=== PATIENT | female | born 2005 | race Hispanic/Latino ===

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

== ENCOUNTER 2024-02-17 16:16 | Emergency (ER) | payer BC, SELFPAY ==
[2024-02-17 16:24] VITALS: BMI 24.2
--- NOTE | 2024-02-17 16:27 | PC.NURSE ---
pt belongings put in bags and locked up; pt changed into paper scrubs; pt asked to give urine sample when able to this sitter remains at bedside.
--- NOTE | 2024-02-17 16:31 | ED_ITS ---
HPI - General Adult <Elizabeth Russell MD - Last Filed: 03/03/24 23:42> General Chief complaint: Psychiatric Symptoms Stated complaint: SI Time Seen by Provider: 02/17/24 16:31 History of Present Illness HPI narrative: Brought in by police after being found at [place] wanting to just off. Broke up with boyfriend today. Police bring her in for safety. She states that she still feels like she wants to hurt herself. Boyfriend is reportedly in the waiting room patient would like to see him. We would like to complete evaluation and have her talk with our clinical social work therapist before we reunite the broken up pair. She has had prior suicide attempts currently is on fluoxetine and took that for approximately 6 months with complaints that it did not help with her mood and did cause increasing lability. On January 25 this was discontinued and she was started on sertraline. Related Data Home Medications Medication Instructions Recorded Confirmed sertraline 100 mg tablet mg PO DAILY Depression 02/27/24 02/27/24 Previous Rx's Medication Instructions Recorded buspirone 5 mg tablet 5 mg PO BID #60 tabs 02/27/24 Allergies Allergy/AdvReac Type Severity Reaction Status Date / Time No Known Drug Allergies Allergy Verified 02/27/24 10:13 <Momo Hutchins DO - Last Filed: 02/17/24 22:46> History of Present Illness HPI narrative: Brought in by police after being found at [place] wanting to jump off. Broke up with boyfriend today. Police bring her in for safety. She states that she still feels like she wants to hurt herself. Boyfriend is reportedly in the waiting room patient would like to see him. We would like to complete evaluation and have her talk with our clinical social work therapist before we reunite the broken up pair. She has had prior suicide attempts currently is on fluoxetine and took that for approximately 6 months with complaints that it did not help with her mood and did cause increasing lability. On January 25 this was discontinued and she was started on sertraline. Patient History <Elizabeth Russell MD - Last Filed: 03/03/24 23:42> Medical History (Updated 03/03/24 @ 00:00 by ) Vision disorder Depression with anxiety Fatigue Surgical History (Updated 01/14/24 @ 20:05 by Avril Ray) Anesthesia History of eye surgery Social History Smoking Status: Never smoker Smoking Status: Never smoker Exam <Elizabeth Russell MD - Last Filed: 03/03/24 23:42> Initial Vital Signs Initial Vital Signs: Vital Signs Temperature 98.2 F 02/17/24 16:33 Pulse Rate 112 H 02/17/24 16:33 Respiratory Rate 16 02/17/24 16:33 Blood Pressure 128/79 02/17/24 16:33 Pulse Oximetry 99 02/17/24 16:33 Oxygen Delivery Method Room Air 02/17/24 16:33 <Momo Hutchins DO - Last Filed: 02/17/24 22:46> Initial Vital Signs Initial Vital Signs: Vital Signs Temperature 98.2 F 02/17/24 16:33 Pulse Rate 112 H 02/17/24 16:33 Respiratory Rate 16 02/17/24 16:33 Blood Pressure 128/79 02/17/24 16:33 Pulse Oximetry 99 02/17/24 16:33 Oxygen Delivery Method Room Air 02/17/24 16:33 Const General: cooperative, comfortable and No ill appearing HENIN Head: normal to inspection and normocephalic Resp Effort & Inspection: normal respiratory effort Cardio Rate: regular rate Neuro General: patient alert, patient awake, patient oriented x3 and moves all extremities Extrem General: normal to inspection Psych Appearance: grossly normal and well kempt Speech and Movement: speech and movement normal Affect: sad Attitude: cooperative Course <Elizabeth Russell MD - Last Filed: 03/03/24 23:42> Orders Ordered: ED Orders 02/17/24 16:35 Complete Blood Count AUTO DIFF Stat Comprehensive Metabolic Panel Stat Ethanol (ETOH) Stat TSH w/ Reflex to FT4 Stat 02/17/24 17:56 Consult to [facility] - Statistical Engineer Stat 02/17/24 19:15 Covid-19 + FLU A/B + RSV - PCR Stat 02/17/24 19:25 Urine Culture Stat Urine Drug Screen, Rapid Stat Urine Microscopic Stat Vital Signs Vital signs: Vital Signs - 8 hr 02/17/24 16:33 02/17/24 20:33 Temperature 98.2 F 98.5 F Pulse Rate 112 H 115 H Respiratory Rate 16 16 Blood Pressure 128/79 117/70 Pulse Oximetry 99 99 Oxygen Delivery Method Room Air Room Air Oxygen Flow Rate 0 <Momo Hutchins DO - Last Filed: 02/17/24 22:46> Orders Ordered: ED Orders 02/17/24 16:35 Complete Blood Count AUTO DIFF Stat Comprehensive Metabolic Panel Stat Ethanol (ETOH) Stat TSH w/ Reflex to FT4 Stat 02/17/24 17:56 Consult to [facility] - Statistical Engineer Stat 02/17/24 19:15 Covid-19 + FLU A/B + RSV - PCR Stat 02/17/24 19:25 Urine Culture Stat Urine Drug Screen, Rapid Stat Urine Microscopic Stat Vital Signs Vital signs: Vital Signs - 8 hr 02/17/24 16:33 02/17/24 20:33 Temperature 98.2 F 98.5 F Pulse Rate 112 H 115 H Respiratory Rate 16 16 Blood Pressure 128/79 117/70 Pulse Oximetry 99 99 Oxygen Delivery Method Room Air Room Air Oxygen Flow Rate 0 Medical Decision Making <Elizabeth Russell MD - Last Filed: 03/03/24 23:42> Lab Data 02/17/24 16:35 02/17/24 16:35 Labs: Lab Results 02/17/24 02/17/24 02/17/24 Range/Units 16:35 19:15 19:25 WBC 8.8 (4.5-11.0) X10^3/uL RBC 4.21 (4.0-5.2) X10^6/uL Hgb 12.6 (12.0-16.0) g/dL Hct 36.2 (36-46) % MCV 86.0 (80-100) fL MCH 30.0 (26-34) PG MCHC 34.9 (30-36) % RDW 12.8 (11.6-14.8) % Plt Count 338 (150-400) X10^3/uL Neut % (Auto) 70.6 (50-75) % Lymph % (Auto) 21.9 L (25-40) % [place] % (Auto) 5.7 (3-14) % Eos % (Auto) 1.5 L (2-4) % Baso % (Auto) 0.3 (0-2) % Neut # (Auto) 6200 (3174-0148) /uL Lymph # (Auto) 1900 (5034-0572) /uL [place] # (Auto) 500 (0-900) /uL Eos # (Auto) 100 (0-450) /uL Baso # (Auto) 0 (0-100) /uL Sodium 139 (137-145) mmol/L Potassium 4.0 (3.4-5.1) mmol/L Chloride 106 (98-107) mmol/L Carbon Dioxide 24 (22-32) mmol/L BUN 17 (7-17) mg/dL Creatinine 0.69 (0.52-1.04) mg/dL Estimated GFR > 60 (>60) mL/min BUN/Creatinine Ratio 24.6 H (6-22) Glucose 100 (70-100) mg/dL Calcium 9.5 (8.4-10.2) mg/dL Total Bilirubin 0.5 (0.2-1.3) mg/dL AST 25 (14-36) IU/L ALT 21 (<35) IU/L Alkaline Phosphatase 54 (38-126) U/L Total Protein 7.8 (6.3-8.2) g/dL Albumin 4.8 (3.5-5.0) g/dL Globulin 3.0 (1.7-4.1) g/dL Albumin/Globulin Ratio 1.6 (1.0-2.8) TSH 0.87 (0.47-4.68) uIU/mL Urine RBC None seen (0-5/HPF) Urine WBC 1-5/hpf (0-5/HPF) Ur Squamous Epith Cells 1-5 /hpf (0-5/HPF) Urine Bacteria Many (>30) H (None) Ur Culture Indicated? Specimen cultured Vol Urine Centrifuged 10ml (spun) U Opiates 300ng/mL cut Negative (Negative) Ur Oxycodone Screen Negative (Negative) Urine Methadone Screen Negative (Negative) Ur Barbiturates Screen Negative (Negative) U Tricyclic Antidepress Negative (Negative) Ur Phencyclidine Scrn Negative (Negative) Ur Amphetamines Screen Negative (Negative) U Methamphetamines Scrn Negative (Negative) Ur MDMA Scrn (Ecstasy) Negative (Negative) U Benzodiazepines Scrn Negative (Negative) Urine Cocaine Screen Negative (Negative) U Marijuana (THC) Screen Negative (Negative) Urine pH Normal (Normal) Urine Specific [place] Normal (Normal) Ethyl Alcohol < 10 ( - 10) mg/dL Ur Creatinine Normal (Normal) SARS-CoV-2 (PCR) Negative (Negative) Influenza A (RT-PCR) Flu a negative (NEGATIVE) Influenza B (RT-PCR) Flu b negative (NEGATIVE) RSV (PCR) Negative (Negative) Point of Care Testing Test Results Negative Urine Dip Bedside Urine Glucose Negative Bedside Urine Bilirubin - Negative Bedside Urine Ketone +/- 5 Urine Specific [place] 1.030 Bedside Urine Occult Blood +/- Bedside Urine pH 6.0 Bedside Urine Protein - Negative Bedside Urine Urobilinogen - Negative Bedside Urine Nitrite - Negative Point of care testing: Point of Care Testing Test Results Negative Urine Dip Bedside Urine Glucose Negative Bedside Urine Bilirubin - Negative Bedside Urine Ketone +/- 5 Urine Specific [place] 1.030 Bedside Urine Occult Blood +/- Bedside Urine pH 6.0 Bedside Urine Protein - Negative Bedside Urine Urobilinogen - Negative Bedside Urine Nitrite - Negative MDM Narrative Medical decision making narrative: CC: Suicidal ideation Complicating co-morbidities: [place] on [place] about to jump off, intermittent episodes of homelessness, broke up with her boyfriend today, financial stressors Data collected from: patient , police officers -we will be leaving affidavit Medical records reviewed: Primary care notes with the discussion of depression and change of medications reviewed from January 25 Differential considered: Active suicidal ideation, passive suicidal ideation Exam documented above, pertinent findings include: Lab Test results independently reviewed as above. Pertinent findings: Independently reviewed EKG: Imaging studies independently reviewed: Consultations: Treatments: Re-evaluations: Discussion: <Momo Hutchins DO - Last Filed: 02/17/24 22:46> Lab Data Lab results reviewed: Yes I reviewed the patient's lab results. Labs: Lab Results 02/17/24 02/17/24 02/17/24 Range/Units 16:35 19:15 19:25 WBC 8.8 (4.5-11.0) X10^3/uL RBC 4.21 (4.0-5.2) X10^6/uL Hgb 12.6 (12.0-16.0) g/dL Hct 36.2 (36-46) % MCV 86.0 (80-100) fL MCH 30.0 (26-34) PG MCHC 34.9 (30-36) % RDW 12.8 (11.6-14.8) % Plt Count 338 (150-400) X10^3/uL Neut % (Auto) 70.6 (50-75) % Lymph % (Auto) 21.9 L (25-40) % [place] % (Auto) 5.7 (3-14) % Eos % (Auto) 1.5 L (2-4) % Baso % (Auto) 0.3 (0-2) % Neut # (Auto) 6200 (6609-9834) /uL Lymph # (Auto) 1900 (2969-3041) /uL [place] # (Auto) 500 (0-900) /uL Eos # (Auto) 100 (0-450) /uL Baso # (Auto) 0 (0-100) /uL Sodium 139 (137-145) mmol/L Potassium 4.0 (3.4-5.1) mmol/L Chloride 106 (98-107) mmol/L Carbon Dioxide 24 (22-32) mmol/L BUN 17 (7-17) mg/dL Creatinine 0.69 (0.52-1.04) mg/dL Estimated GFR > 60 (>60) mL/min BUN/Creatinine Ratio 24.6 H (6-22) Glucose 100 (70-100) mg/dL Calcium 9.5 (8.4-10.2) mg/dL Total Bilirubin 0.5 (0.2-1.3) mg/dL AST 25 (14-36) IU/L ALT 21 (<35) IU/L Alkaline Phosphatase 54 (38-126) U/L Total Protein 7.8 (6.3-8.2) g/dL Albumin 4.8 (3.5-5.0) g/dL Globulin 3.0 (1.7-4.1) g/dL Albumin/Globulin Ratio 1.6 (1.0-2.8) TSH 0.87 (0.47-4.68) uIU/mL Urine RBC None seen (0-5/HPF) Urine WBC 1-5/hpf (0-5/HPF) Ur Squamous Epith Cells 1-5 /hpf (0-5/HPF) Urine Bacteria Many (>30) H (None) Ur Culture Indicated? Specimen cultured Vol Urine Centrifuged 10ml (spun) U Opiates 300ng/mL cut Negative (Negative) Ur Oxycodone Screen Negative (Negative) Urine Methadone Screen Negative (Negative) Ur Barbiturates Screen Negative (Negative) U Tricyclic Antidepress Negative (Negative) Ur Phencyclidine Scrn Negative (Negative) Ur Amphetamines Screen Negative (Negative) U Methamphetamines Scrn Negative (Negative) Ur MDMA Scrn (Ecstasy) Negative (Negative) U Benzodiazepines Scrn Negative (Negative) Urine Cocaine Screen Negative (Negative) U Marijuana (THC) Screen Negative (Negative) Urine pH Normal (Normal) Urine Specific [place] Normal (Normal) Ethyl Alcohol < 10 ( - 10) mg/dL Ur Creatinine Normal (Normal) SARS-CoV-2 (PCR) Negative (Negative) Influenza A (RT-PCR) Flu a negative (NEGATIVE) Influenza B (RT-PCR) Flu b negative (NEGATIVE) RSV (PCR) Negative (Negative) Point of Care Testing Test Results Negative Urine Dip Bedside Urine Glucose Negative Bedside Urine Bilirubin - Negative Bedside Urine Ketone +/- 5 Urine Specific [place] 1.030 Bedside Urine Occult Blood +/- Bedside Urine pH 6.0 Bedside Urine Protein - Negative Bedside Urine Urobilinogen - Negative Bedside Urine Nitrite - Negative Point of care testing: Point of Care Testing Test Results Negative Urine Dip Bedside Urine Glucose Negative Bedside Urine Bilirubin - Negative Bedside Urine Ketone +/- 5 Urine Specific [place] 1.030 Bedside Urine Occult Blood +/- Bedside Urine pH 6.0 Bedside Urine Protein - Negative Bedside Urine Urobilinogen - Negative Bedside Urine Nitrite - Negative MDM Narrative Medical decision making narrative: CC: Suicidal ideation Complicating co-morbidities: Found standing on [place] about to jump off, intermittent episodes of homelessness, broke up with her boyfriend today, financial stressors Data collected from: patient , police officers -we will be leaving affidavit Medical records reviewed: Primary care notes with the discussion of depression and change of medications reviewed from January 25 Differential considered: Active suicidal ideation, passive suicidal ideation Exam documented above, pertinent findings include: Lab Test results independently reviewed as above. Pertinent findings: Independently reviewed EKG: Imaging studies independently reviewed: Consultations: Treatments: Re-evaluations: Discussion: Dr hutchins: Received turned over. Review patient's history and physical exam and workup up to this point. Patient is expressing suicidal ideation and active suicidal ideation. She was medically cleared social work consult placed. Will attempt to find placement. Dr Hutchins: Patient has been accepted to [facility]. Patient is voluntary. She was stable for transport. Discharge Plan Departure Patient Disposition[facility] Clinical Impression: Suicidal ideation Prescriptions: No Action sertraline 100 mg tablet PO DAILY Patient Comments: Mental hospital doctor prescribed me this buspirone 5 mg tablet 5 mg PO BID Qty: 60 0RF Referrals: Raina Cullen MD [Primary Care Provider] -
[2024-02-17 16:33] VITALS: BP 128/79; PULSE 112; RESP 16; TEMP 36.8; O2SAT 99
[2024-02-17 16:56] LABS: Add Manual Diff / Slide Review NO; Basophils Absolute Auto 0 /uL (0-100); Basophils Percent Auto 0.3 % (0-2); Eosinophils Absolute Auto 100 /uL (0-450); Eosinophils Percent Auto 1.5 % (2-4); Hematocrit 36.2 % (36-46); Hemoglobin 12.6 g/dL (12.0-16.0); Lymphocytes Absolute Auto 1900 /uL (1100-4500); Lymphocytes Percent Auto 21.9 % (25-40); Mean Corpuscular HGB Conc 34.9 % (30-36); Monocytes Absolute Auto 500 /uL (0-900); Monocytes Percent Auto 5.7 % (3-14); Neutrophils Absolute Auto 6200 /uL (1500-7000); Neutrophils Percent Auto 70.6 % (50-75); Platelet Count 338 X10^3/uL (150-400); Red Blood Cell Count 4.21 X10^6/uL (4.0-5.2); Red Cell Distribution Width 12.8 % (11.6-14.8); White Blood Cell Count 8.8 X10^3/uL (4.5-11.0)
[2024-02-17 17:11] LABS: Alanine Aminotransferase 21 IU/L (<35); Albumin 4.8 g/dL (3.5-5.0); Albumin Globulin Ratio 1.6 (1.0-2.8); Alkaline Phosphatase 54 U/L (38-126); Aspartate Aminotransferase 25 IU/L (14-36); BUN Creatinine Ratio 24.6 (6-22); Bilirubin Total 0.5 mg/dL (0.2-1.3); Blood Urea Nitrogen 17 mg/dL (7-17); Calcium 9.5 mg/dL (8.4-10.2); Carbon Dioxide 24 mmol/L (22-32); Chloride 106 mmol/L (98-107); Estimated Glomerular Filt Rate > 60 mL/min (>60); Ethanol (ETOH) < 10 mg/dL; Glucose 100 mg/dL (70-100); HEMOLYSIS < 15 (0-50); Sodium 139 mmol/L (137-145); Total Protein 7.8 g/dL (6.3-8.2)
--- NOTE | 2024-02-17 17:46 | CM.SWNOTE ---
ED PARK RANGER Assessment: PARK RANGER - Forest Pathology Professor Assessment PARK RANGER/Forest Pathology Professor Assessment Time Spent with Patient Start date 02/17/24 Visit Start Time 16:45 End date 02/17/24 Visit End Time 17:05 Total time Care Management spent on 20 minutes patient visit-in minutes Mental Health Screening Include Onset, Duration, Intensity Presenting Problem Patient arrives via [facility] Department for psych evaluation and medical clearance for inpatient treatment. Per [employer] and patient , patient was found at [facility] in [place] with intentions of jumping from the [place] to end her life. Per medical record, pt has history of passive suicidal ideation with no plans or intention. Patient's PHQ-9 scored at 23, SAMANTHA-7 scored at 20. Precipitating Event(s) Patient has a hx of depression with anxiety. Patient has switched her medications recently (01/26/24) from fluoxetine to sertraline. Patient obtains this prescription through her primary care provider. Patient was feeling hopeless and lonely following a disagreement with her boyfriend which resulted in them ending their relationship today. Patient Strengths Patient is in school, aspiring to be a nurse and works at [employer] as a [employer]. Patient also collaborates with her Primary Care Provider. Current Behavioral Health Provider(s) Patient currently does not Include Facility, Provider, Ph. # have a mental health provider. Per EMR, pt was referred to counseling by her PCP but has not been able to establish MH care. Psych. Hx Mental Health and Chemical Patient explains her mother Dependency has undiagnosed depression, denies any other family hx of psychiatric diagnoses. Patient reports she utilizes THC but denies any other substances. Family Hx of Behavioral Abuse None reported. Psychiatric Hospitalizations (date(s)/ None reported. location) Psychosocial information & Support Patient is a 18yo female, Systems resident of [place]. Patient lives with her boyfriend and his family. Patient reports her relationship with her parents is estranged and has very little contact with them. School/Work Patient is in school to be a nurse and works as a health analytics consultant at [employer]. Mental Status Orientation (Person/Place/Time) Alert and oriented x4 Stated Mood lonely Affect (Congruent with Mood?) Dysthymic, tearful Thought Content - Specify/Describe No obsessions, delusions, or Obsessions, Delusions, Hallucinations hallucinations observed or reported. Thought Processes (Ixgithc-Uoorvmhz-Nbjr Coherent, goal directed. Nmogpdaz-Mdjxtvjt-Jdwfsszsst- Kmxiuwteepcrkc-Sjyoktn-Yxqnbnfbprxb- Thought Blocking) Speech (Edbjoo-Iupb-Ofsrgzh-Rapid-Soft- Soft, normal Loud-Pressured) Motor (Dkxkvs-Quauzvkyn-Cnoe-Other) Normal Insight (Vhsg-Vasp-Hthd/Limited) Fair/limited Judgement (Jldm-Zmso-Zudl/Limited) Poor/limited Impulse Control (Adequate-Impaired) Adequate during assessment. Patient does describe today's suicide near attempt to be impulsive and does not describe other scenarios in which she feels she acts impulsively. Memory (Kfwiofvzy-Kzcfns-Jkpmwq, Intact for interview, not Impaired-Intact) formally assessed. Concentration (Intact-Impaired) Intact Attention (Intact-Impaired) Intact Behavior (Appropriate-Inappropriate) Appropriate. Additional Comment Patient is calm, cooperative during assessment. Risk Assessment Suicidal Ideation (Plan) Yes Homicidal Ideation (Plan) No Comment Patient denies HI. Patient endorses SI and drove to [place] with intentions of killing herself by jumping from the look[place]. Patient explains her SI is typically passive and she has never thought of a plan but with the precipitating events of today , she felt so lonely in which she didn't want to feel this way anymore. Intervention Intervention PARK RANGER meets with patient. Patient discusses her SI and the events today in which she drove to [place] lookout and had intentions of jumping to end her life. PARK RANGER and patient discuss next steps. PARK RANGER educated patient on the Involunary Treatment Act, patient endorsed understanding although reported that she wished she could go home (her boyfriend 's house). Patient explains she is open to receiving inpatient behavioral health hospitalization at this time. PARK RANGER calls [facility] [employer] [facility] to consult regarding pt's FABIO status. DCR to call this PARK RANGER for further clarification but VOA Specialist states pt seems to check criteria for voluntary treatment. At this time, it is the opinion of this PARK RANGER that patient would benefit from inpatient psychiatric hospitalization for SI. PARK RANGER informs ED provider, Dr. Russell, who indicates agreement. PARK RANGER informs CARLA Hernandez of plan coordination. Plan RA Plan Once patient is medically clear, ED staff will attempt to find inpatient placement for patient. MAYI Grossman
--- NOTE | 2024-02-17 18:10 | PC.NURSE ---
Mom at bedside.
[2024-02-17 18:30] LABS: TSH w/ Reflex to FT4 0.87 uIU/mL (0.47-4.68)
--- NOTE | 2024-02-17 19:25 | CM.SWNOTE ---
ED SHOE CLERK Note: SHOE CLERK called [facility] for bed census, it was reported by Mo that there are 2 beds available. Clinical packet was sent for review. SHOE CLERK called [facility] for bed census, it was reported by Karoline that there are 2 beds available. Clinical packet was sent for review. SHOE CLERK completed initial screening via phone. SHOE CLERK called [facility] for bed census, it was reported that there are 3 beds available. Clinical packet was sent for review. Pt has reported that this is the facility of her preference. SHOE CLERK spoke with REGINA Akers (ph#[phone]) and discussed pt's FABIO/voluntary status. Pt is currently agreeable to inpatient treatment and is currently voluntary status. Plan: ED Team to continue to follow up on clinical packet status to search for pt's inpatient treatment. MAYI Grossman
[2024-02-17 19:49] LABS: Ur Creatinine Normal (Normal); Ur Specific Gravity Normal (Normal); Urine pH Normal (Normal)
[2024-02-17 19:50] LABS: Urine Amphetamines Negative (Negative); Urine Barbiturates Negative (Negative); Urine Benzodiazepines Negative (Negative); Urine Cocaine Negative (Negative); Urine MDMA Negative (Negative); Urine Methadone Negative (Negative); Urine Methamphetamines Negative (Negative); Urine Opiates Negative (Negative); Urine Oxycodone Negative (Negative); Urine Phencyclidine Negative (Negative); Urine THC Negative (Negative); Urine Tricyclic Antidepressant Negative (Negative)
[2024-02-17 19:52] LABS: RBC Urine None Seen (0-5/HPF); Urine Volume 10mL (spun); WBC Urine 1-5/HPF (0-5/HPF)
[2024-02-17 19:53] LABS: Bacteria Urine Many (>30); Culture Indicated Urine Specimen Cultured; Squamous Epithelial Cell Urine 1-5 /HPF (0-5/HPF)
[2024-02-17 20:11] LABS: Influenza A - CEPHEID Flu A NEGATIVE (NEGATIVE); Influenza B - CEPHEID Flu B NEGATIVE (NEGATIVE); Respiratory Syncytial Virus Negative (Negative)
[2024-02-17 20:17] LABS: COVID-19 CEPHEID 4-PLEX PCR Negative (Negative)
--- NOTE | 2024-02-17 20:27 | PC.NURSE ---
spoke with provider. he is okay with patient having cabinet opened and having charging cord for her cell phone. keys given to boyfriend's mother. call light is also available at this point for patient to use. provider aware.
[2024-02-17 20:33] VITALS: BP 117/70; PULSE 115; RESP 16; TEMP 36.9; O2SAT 99
--- NOTE | 2024-02-17 23:05 | PC.NURSE ---
Report given to Cb AGUIRRE at [facility] in [place], [place] #[phone]
[2024-02-17 23:19] VITALS: BP 118/68; PULSE 90; RESP 16; TEMP 37; O2SAT 97
--- NOTE | 2024-02-17 23:38 | PC.NURSE ---
Finance Mgr note PT is transferring to [facility] in [place].
--- NOTE | 2024-02-17 23:54 | PC.NURSE ---
Pt accepted at [facility] and at [facility] unit. Pt preference was to go to [facility]. Pt departed ED via [facility] @ 0019to [facility]. Ed EMERY WHEEL MOLDER cancelled [facility] on Pt departure from ED
== END 2024-02-17 23:46 ==
PROVIDERS: Emergency Medicine; Emergency Provider Emergency Medicine; PCP Family Medicine
DX: R45.851 Suicidal ideations (principal)
CPT/HCPCS: 0241U; 36415; 80053; 80305; 80320; 81003; 81015; 81025; 84443; 85025; 87077; 87086; 87186; 99284